=== PATIENT | female | born 1950 | race Caucasian/White ===

== ENCOUNTER → 2023-04-08 | Outpatient (CLI) | payer MEDICARE, OTHER | END | disposition home or self-care (01) | LOC: CT 07:46 | PROVIDERS: ATTEND Neurological Surgery | DX: I67.1 Cerebral aneurysm, nonruptured (principal); I67.82 Cerebral ischemia ==

== ENCOUNTER → 2023-04-23 | Outpatient (CLI) | payer MEDICARE, OTHER | END | disposition home or self-care (01) | LOC: CT 01:21 | PROVIDERS: ATTEND Physician Assistant | DX: I67.1 Cerebral aneurysm, nonruptured (principal); R22.0 Localized swelling, mass and lump, head; Z98.890 Other specified postprocedural states; Z86.79 Personal history of other diseases of the circulatory system ==

== ENCOUNTER 2023-08-04 22:07 | Emergency (ER) | payer MEDICARE, OTHER ==
[~2023-08-04] VITALS: Ht 152.4 cm; Wt 52.6 kg
[2023-08-04] MEDS ORDERED: SERTRALINE HYDR50 MG PO (22:34)
[2023-08-04] MEDS ORDERED: THEOPHYLLINE E PO (22:34)
[2023-08-04] MEDS ORDERED: IBUPROFEN IB200 M1 PO (22:35)
[2023-08-04] MEDS ORDERED: DONEPEZIL HYDRO10 MG PO (22:35)
[2023-08-04] MEDS ORDERED: OMEPRAZOLE10 MG PO (22:35)
[2023-08-04] MEDS ORDERED: PREDNISONE5 MG PO (22:36)
[2023-08-04] MEDS ORDERED: GRALISE300 M1 PO (22:36)
[2023-08-04] MEDS ORDERED: VENT7GM INH (22:36)
[2023-08-04] MEDS ORDERED: BIOTIN2500 MC1 PO (22:37)
[2023-08-04 22:59] LABS: BASO % 0.1 % (0.0-1.0); HEMATOCRIT 37.4 % (37.0-47.0); LYMPH # 0.6 10*3/uL (1.3-4.4); LYMPH % 4.2 % (27.0-41.0); MEAN CELL VOLUME 85.2 fl (81.0-99.0); MEAN CORPUSCULAR HGB 26.4 pg (27.0-31.0); MEAN PLATELET VOLUME 9.2 fl (9.6-12.3); MONO # 0.8 10*3/uL (0.1-1.0); NEUT # 12.4 10*3/uL (2.3-7.9); NEUT % 89.1 % (47.0-73.0); PLATELET COUNT AUTOMATED 284 10*3/uL (130-400); RED BLOOD COUNT 4.39 10*6/uL (4.10-5.10)
[2023-08-04 23:14] LABS: ACT PARTIAL THROMBO TIME 24.5 SECONDS (20.0-32.1)
[2023-08-04 23:21] LABS: ALKALINE PHOSPHATASE 124 U/L (46-116); BUN 16 mg/dl (9-23); CHLORIDE 107 mmol/L (98-107); LIPASE 33 U/L (12-53); SGPT/ALT 10 U/L (5-49); TOTAL PROTEIN 6.3 gm/dL (6.0-8.0)
[2023-08-05] MEDS ORDERED: VIBRAMYCIN100 MG PO (02:35)
[2023-08-05] MEDS ORDERED: PREDNISONE20 M1 PO (02:36)
== END 2023-08-05 03:54 | disposition home or self-care (01) ==
LOC: ED 22:07
PROVIDERS: Internal Medicine
DX: J44.9 Chronic obstructive pulmonary disease, unspecified (principal); A04.72 Enterocolitis due to Clostridium difficile, not specified as recurrent; J18.9 Pneumonia, unspecified organism; F17.210 Nicotine dependence, cigarettes, uncomplicated

== ENCOUNTER 2023-08-17 21:50 | Emergency (ER) | payer MEDICARE, OTHER ==
[~2023-08-17] VITALS: Ht 162.5 cm; Wt 54.0 kg
[~2023-08-17 21:50] MED LIST: BIOTIN2500 MC1 PO; DONEPEZIL HYDRO10 MG PO; GRALISE300 M1 PO; IBUPROFEN IB200 M1 PO; OMEPRAZOLE10 MG PO; PREDNISONE20 M1 PO; PREDNISONE5 MG PO; SERTRALINE HYDR50 MG PO; THEOPHYLLINE E PO; VENT7GM INH; VIBRAMYCIN100 MG PO
[2023-08-17 23:45] LABS: BASO % 0.4 % (0.0-1.0); EOS # 0.1 10*3/uL (0.0-0.4); EOS % 0.8 % (1.0-4.0); HEMATOCRIT 40.9 % (37.0-47.0); LYMPH # 1.6 10*3/uL (1.3-4.4); LYMPH % 16.1 % (27.0-41.0); MEAN CELL VOLUME 86.8 fl (81.0-99.0); MEAN CORPUSCULAR HGB 26.1 pg (27.0-31.0); MEAN CORPUSCULAR HGB CONC 30.1 g/dl (33.0-37.0); MEAN PLATELET VOLUME 8.9 fl (9.6-12.3); MONO # 0.9 10*3/uL (0.1-1.0); MONO % 8.6 % (3.0-9.0); NEUT # 7.5 10*3/uL (2.3-7.9); NEUT % 73.4 % (47.0-73.0); PLATELET COUNT AUTOMATED 365 10*3/uL (130-400); RED BLOOD COUNT 4.71 10*6/uL (4.10-5.10); RED CELL DISTRI WIDTH 16.4 % (0-14.5); WHITE BLOOD COUNT 10.2 10*3/uL (4.8-10.8)
[2023-08-18 00:13] LABS: ALKALINE PHOSPHATASE 139 U/L (46-116); BUN 18 mg/dl (9-23); CHLORIDE 107 mmol/L (98-107); POTASSIUM 3.6 mmol/L (3.4-5.1); SGPT/ALT 10 U/L (5-49); THEOPHYLLINE 17.2 ug/ml (10-20); TOTAL PROTEIN 6.5 gm/dL (6.0-8.0)
[2023-08-18] MEDS ORDERED: PREDNISONE20 M1 PO (06:31)
== END 2023-08-18 06:48 | disposition home or self-care (01) ==
LOC: ED 21:50
PROVIDERS: Internal Medicine
DX: S00.01XA Abrasion of scalp, initial encounter (principal); X58.XXXA Exposure to other specified factors, initial encounter; Y93.89 Activity, other specified; Y92.009 Unspecified place in unspecified non-institutional (private) residence as the place of occurrence of the external cause; Y99.8 Other external cause status

== ENCOUNTER → 2023-09-01 | Outpatient (CLI) | payer MEDICARE, OTHER | END | disposition home or self-care (01) | LOC: CT 01:04 | PROVIDERS: ATTEND Neurological Surgery | DX: I67.1 Cerebral aneurysm, nonruptured (principal); I62.00 Nontraumatic subdural hemorrhage, unspecified; Z98.890 Other specified postprocedural states ==

== ENCOUNTER → 2023-10-12 | Outpatient (CLI) | payer MEDICARE, OTHER | END | disposition home or self-care (01) | LOC: CT 02:06 | PROVIDERS: ATTEND Physician Assistant Medical | DX: S06.5XAA Traumatic subdural hemorrhage with loss of consciousness status unknown, initial encounter (principal); Z98.890 Other specified postprocedural states; X58.XXXA Exposure to other specified factors, initial encounter; Y93.89 Activity, other specified; Y92.89 Other specified places as the place of occurrence of the external cause; Y99.8 Other external cause status ==

== ENCOUNTER 2024-01-08 17:40 | Emergency (ER) | payer MEDICARE, OTHER ==
[~2024-01-08] VITALS: Ht 149.8 cm; Wt 52.2 kg
[2024-01-08] MEDS ORDERED: SODIUM CHLORIDE 0.9% 1,000 ML IV ONE (18:00)
[2024-01-08] MEDS ORDERED: AZITHROMYCIN 250 MG TAB PO ONE (18:00)
[2024-01-08] MEDS ORDERED: MAGNESIUM SULFATE 50 ML IV ONE (18:00)
[2024-01-08] MEDS ORDERED: Albuterol Sulfate 2.5 MG/3 ML VIAL NEB ONE (18:00)
[2024-01-08] MEDS ORDERED: methylPREDNISolone sod succ 125 MG VIAL IV ONE (18:00)
[2024-01-08 18:08] LABS: BASO % 0.2 % (0.0-1.0); EOS % 0.1 % (1.0-4.0); HEMATOCRIT 39.9 % (37.0-47.0); LYMPH # 0.3 10*3/uL (1.3-4.4); LYMPH % 1.9 % (27.0-41.0); MEAN CELL VOLUME 80.9 fl (81.0-99.0); MEAN CORPUSCULAR HGB 24.1 pg (27.0-31.0); MEAN CORPUSCULAR HGB CONC 29.8 g/dl (33.0-37.0); MEAN PLATELET VOLUME 9.2 fl (9.6-12.3); MONO # 0.7 10*3/uL (0.1-1.0); MONO % 5.1 % (3.0-9.0); NEUT # 12.5 10*3/uL (2.3-7.9); NEUT % 92.3 % (47.0-73.0); PLATELET COUNT AUTOMATED 338 10*3/uL (130-400); RED BLOOD COUNT 4.93 10*6/uL (4.10-5.10); RED CELL DISTRI WIDTH 18.4 % (0-14.5); WHITE BLOOD COUNT 13.6 10*3/uL (4.8-10.8)
[2024-01-08 18:32] LABS: ALKALINE PHOSPHATASE 139 U/L (46-116); BUN 17 mg/dl (9-23); CHLORIDE 105 mmol/L (98-107); SGPT/ALT 15 U/L (5-49); TOTAL PROTEIN 6.8 gm/dL (6.0-8.0)
[2024-01-08] MEDS ORDERED: PREDNISONE20 M1 PO (18:51)
[2024-01-08] MEDS ORDERED: AVPAK AZITHROM250 M1 PO (18:51)
[2024-01-08 18:55] LABS: BURR CELLS FEW; MICROCYTOSIS SLIGHT; PLATELET SUFFICIENCY NORMAL (NORMAL); TOTAL CELLS COUNTED 100 #CELLS
== END 2024-01-08 19:33 | disposition home or self-care (01) ==
LOC: ED 17:40
PROVIDERS: Emergency Medicine
DX: J44.1 Chronic obstructive pulmonary disease with (acute) exacerbation (principal); J45.909 Unspecified asthma, uncomplicated; F17.200 Nicotine dependence, unspecified, uncomplicated

== ENCOUNTER → 2024-05-28 | Outpatient (CLI) | payer MEDICARE, OTHER ==
[~2024-05-28] MED LIST changes: +AVPAK AZITHROM250 M1 PO
== END | disposition home or self-care (01) ==
LOC: CT 10:45
PROVIDERS: ATTEND Physician Assistant Medical
DX: G96.00 Cerebrospinal fluid leak, unspecified (principal); G96.08 Other cranial cerebrospinal fluid leak; I67.82 Cerebral ischemia; R42 Dizziness and giddiness

== ENCOUNTER 2024-06-21 00:03 | Emergency (ER) | payer MEDICARE, OTHER ==
[~2024-06-21] VITALS: Ht 152.4 cm; Wt 54.4 kg
[2024-06-21 00:42] LABS: BASO % 0.1 % (0.0-1.0); EOS % 0.1 % (1.0-4.0); HEMATOCRIT 28.8 % (37.0-47.0); LYMPH # 0.6 10*3/uL (1.3-4.4); LYMPH % 5.8 % (27.0-41.0); MEAN CELL VOLUME 80.9 fl (81.0-99.0); MEAN CORPUSCULAR HGB 23.3 pg (27.0-31.0); MEAN CORPUSCULAR HGB CONC 28.8 g/dl (33.0-37.0); MEAN PLATELET VOLUME 8.7 fl (9.6-12.3); MONO # 0.6 10*3/uL (0.1-1.0); MONO % 5.9 % (3.0-9.0); NEUT % 87.3 % (47.0-73.0); PLATELET COUNT AUTOMATED 406 10*3/uL (130-400); RED BLOOD COUNT 3.56 10*6/uL (4.10-5.10); RED CELL DISTRI WIDTH 18.2 % (0-14.5); WHITE BLOOD COUNT 10.3 10*3/uL (4.8-10.8)
[2024-06-21 01:05] LABS: POTASSIUM 3.5 mmol/L (3.4-5.1)
== END 2024-06-21 02:49 | disposition home or self-care (01) ==
LOC: ED 00:03
PROVIDERS: Internal Medicine
DX: S01.00XA Unspecified open wound of scalp, initial encounter (principal); N18.32 Chronic kidney disease, stage 3b; D63.1 Anemia in chronic kidney disease; J44.9 Chronic obstructive pulmonary disease, unspecified; X58.XXXA Exposure to other specified factors, initial encounter; Y93.89 Activity, other specified; Y92.009 Unspecified place in unspecified non-institutional (private) residence as the place of occurrence of the external cause; Y99.8 Other external cause status

== ENCOUNTER → 2024-06-23 | Outpatient (CLI) | payer MEDICARE, OTHER ==
[~2024-06-23] MED LIST changes: +GABAPENTIN ER300 MG PO; +SERTRALINE HYD100 MG PO
== END | disposition home or self-care (01) ==
LOC: WOUNDCARE 02:12 → RESCLI 15:36 → WOUNDCARE 18:30
PROVIDERS: ATTEND Nurse Practitioner Family
DX: S01.00XA Unspecified open wound of scalp, initial encounter (principal); R21 Rash and other nonspecific skin eruption; D50.0 Iron deficiency anemia secondary to blood loss (chronic); N18.30 Chronic kidney disease, stage 3 unspecified; L28.1 Prurigo nodularis; K21.9 Gastro-esophageal reflux disease without esophagitis; J44.9 Chronic obstructive pulmonary disease, unspecified; F17.210 Nicotine dependence, cigarettes, uncomplicated; Z79.899 Other long term (current) drug therapy; X58.XXXA Exposure to other specified factors, initial encounter; Y93.89 Activity, other specified; Y92.89 Other specified places as the place of occurrence of the external cause; Y99.8 Other external cause status

== ENCOUNTER 2024-06-28 19:33 | Emergency (ER) | payer MEDICARE, OTHER ==
[~2024-06-28] VITALS: Ht 152.4 cm; Wt 53.1 kg
[~2024-06-28 19:33] MED LIST changes: -GABAPENTIN ER300 MG PO; -SERTRALINE HYD100 MG PO
[2024-06-28] MEDS ORDERED: SERTRALINE HYD100 MG PO (19:51)
[2024-06-28] MEDS ORDERED: GABAPENTIN ER300 MG PO (19:52)
[2024-06-28] MEDS ORDERED: Albuterol Sulf/Ipratropium 3 ML VIAL NEB ONE (20:00)
[2024-06-28 20:15] LABS: BASO % 0.3 % (0.0-1.0); EOS # 0.1 10*3/uL (0.0-0.4); EOS % 0.6 % (1.0-4.0); HEMATOCRIT 27.3 % (37.0-47.0); MEAN CELL VOLUME 80.5 fl (81.0-99.0); MEAN CORPUSCULAR HGB CONC 28.6 g/dl (33.0-37.0); MEAN PLATELET VOLUME 9.1 fl (9.6-12.3); MONO % 8.6 % (3.0-9.0); NEUT % 75.8 % (47.0-73.0); PLATELET COUNT AUTOMATED 412 10*3/uL (130-400); RED BLOOD COUNT 3.39 10*6/uL (4.10-5.10); RED CELL DISTRI WIDTH 18.3 % (0-14.5); WHITE BLOOD COUNT 11.8 10*3/uL (4.8-10.8)
[2024-06-28 20:32] LABS: POTASSIUM 3.8 mmol/L (3.4-5.1); TOTAL PROTEIN 5.9 gm/dL (6.0-8.0)
[2024-06-28] MEDS ORDERED: methylPREDNISolone sod succ 125 MG VIAL IV ONE (20:40)
[2024-06-28] MEDS ORDERED: SODIUM CHLORIDE 0.9% 100 ML BAG IV ONE (20:55)
[2024-06-28] MEDS ORDERED: IOHEXOL 350 MG/ML 100 ML VIAL IV ONE (20:55)
[2024-06-28] MEDS ORDERED: VIBRAMYCIN100 MG PO (22:24)
[2024-06-28] MEDS ORDERED: Doxycycline Hyclate 100 MG CAP PO ONE (22:25)
[2024-06-28] MEDS ORDERED: PREDNISONE20 M1 PO (22:27)
== END 2024-06-28 22:43 | disposition left against medical advice (07) ==
LOC: ED 19:33
PROVIDERS: Nurse Practitioner Family
DX: J44.1 Chronic obstructive pulmonary disease with (acute) exacerbation (principal); Z20.822 Contact with and (suspected) exposure to COVID-19; K21.9 Gastro-esophageal reflux disease without esophagitis; F32.A Depression, unspecified; Z87.891 Personal history of nicotine dependence; Z53.29 Procedure and treatment not carried out because of patient's decision for other reasons

== ENCOUNTER → 2024-06-30 | Outpatient (CLI) | payer MEDICARE, OTHER ==
[~2024-06-30] MED LIST changes: +GABAPENTIN ER300 MG PO; +SERTRALINE HYD100 MG PO
== END | disposition home or self-care (01) ==
LOC: WOUNDCARE 01:29
PROVIDERS: ATTEND Nurse Practitioner Family
DX: S01.00XD Unspecified open wound of scalp, subsequent encounter (principal); R21 Rash and other nonspecific skin eruption; D50.0 Iron deficiency anemia secondary to blood loss (chronic); N18.30 Chronic kidney disease, stage 3 unspecified; L28.1 Prurigo nodularis; K21.9 Gastro-esophageal reflux disease without esophagitis; J44.9 Chronic obstructive pulmonary disease, unspecified; F17.210 Nicotine dependence, cigarettes, uncomplicated; Z79.899 Other long term (current) drug therapy; X58.XXXD Exposure to other specified factors, subsequent encounter

== ENCOUNTER → 2024-07-07 | Outpatient (CLI) | payer MEDICARE, OTHER | END | disposition home or self-care (01) | LOC: WOUNDCARE 02:10 | PROVIDERS: ATTEND Nurse Practitioner Family | DX: S01.00XD Unspecified open wound of scalp, subsequent encounter (principal); S01.01XD Laceration without foreign body of scalp, subsequent encounter; R21 Rash and other nonspecific skin eruption; D50.0 Iron deficiency anemia secondary to blood loss (chronic); N18.30 Chronic kidney disease, stage 3 unspecified; L28.1 Prurigo nodularis; K21.9 Gastro-esophageal reflux disease without esophagitis; J44.9 Chronic obstructive pulmonary disease, unspecified; F17.210 Nicotine dependence, cigarettes, uncomplicated; Z79.899 Other long term (current) drug therapy; X58.XXXD Exposure to other specified factors, subsequent encounter ==

== ENCOUNTER → 2024-07-14 | Outpatient (CLI) | payer MEDICARE, OTHER | END | disposition home or self-care (01) | LOC: WOUNDCARE 01:39 | PROVIDERS: ATTEND Nurse Practitioner Family | DX: R21 Rash and other nonspecific skin eruption (principal); S01.00XD Unspecified open wound of scalp, subsequent encounter; D50.0 Iron deficiency anemia secondary to blood loss (chronic); N18.30 Chronic kidney disease, stage 3 unspecified; S01.01XD Laceration without foreign body of scalp, subsequent encounter; L28.1 Prurigo nodularis; K21.9 Gastro-esophageal reflux disease without esophagitis; J44.9 Chronic obstructive pulmonary disease, unspecified; F17.200 Nicotine dependence, unspecified, uncomplicated; X58.XXXD Exposure to other specified factors, subsequent encounter ==

== ENCOUNTER → 2024-07-28 | Outpatient (CLI) | payer MEDICARE, OTHER | END | disposition home or self-care (01) | LOC: WOUNDCARE 02:08 | PROVIDERS: ATTEND Nurse Practitioner Family | DX: S00.01XD Abrasion of scalp, subsequent encounter (principal); R21 Rash and other nonspecific skin eruption; L98.492 Non-pressure chronic ulcer of skin of other sites with fat layer exposed; D50.0 Iron deficiency anemia secondary to blood loss (chronic); N18.30 Chronic kidney disease, stage 3 unspecified; L28.1 Prurigo nodularis; K21.9 Gastro-esophageal reflux disease without esophagitis; J44.9 Chronic obstructive pulmonary disease, unspecified; F17.210 Nicotine dependence, cigarettes, uncomplicated; Z79.899 Other long term (current) drug therapy; X58.XXXD Exposure to other specified factors, subsequent encounter ==

== ENCOUNTER → 2024-08-04 | Outpatient (CLI) | payer MEDICARE, OTHER | END | disposition home or self-care (01) | LOC: WOUNDCARE 00:41 | PROVIDERS: ATTEND Nurse Practitioner Family | DX: S00.01XD Abrasion of scalp, subsequent encounter (principal); R21 Rash and other nonspecific skin eruption; L98.492 Non-pressure chronic ulcer of skin of other sites with fat layer exposed; D50.0 Iron deficiency anemia secondary to blood loss (chronic); N18.30 Chronic kidney disease, stage 3 unspecified; L28.1 Prurigo nodularis; K21.9 Gastro-esophageal reflux disease without esophagitis; J44.9 Chronic obstructive pulmonary disease, unspecified; F17.210 Nicotine dependence, cigarettes, uncomplicated; Z79.899 Other long term (current) drug therapy; X58.XXXD Exposure to other specified factors, subsequent encounter ==

== ENCOUNTER → 2024-08-15 | Outpatient (CLI) | payer MEDICARE, OTHER | END | disposition home or self-care (01) | LOC: WOUNDCARE 00:46 | PROVIDERS: ATTEND Nurse Practitioner Family | DX: S00.01XD Abrasion of scalp, subsequent encounter (principal); R21 Rash and other nonspecific skin eruption; L98.492 Non-pressure chronic ulcer of skin of other sites with fat layer exposed; D50.0 Iron deficiency anemia secondary to blood loss (chronic); N18.30 Chronic kidney disease, stage 3 unspecified; L28.1 Prurigo nodularis; K21.9 Gastro-esophageal reflux disease without esophagitis; J44.9 Chronic obstructive pulmonary disease, unspecified; F17.210 Nicotine dependence, cigarettes, uncomplicated; Z79.899 Other long term (current) drug therapy; X58.XXXD Exposure to other specified factors, subsequent encounter ==

== ENCOUNTER → 2024-08-22 | Outpatient (CLI) | payer MEDICARE, OTHER | END | disposition home or self-care (01) | LOC: WOUNDCARE 02:53 | PROVIDERS: ATTEND Nurse Practitioner Primary Care | DX: R21 Rash and other nonspecific skin eruption (principal); L98.492 Non-pressure chronic ulcer of skin of other sites with fat layer exposed; L28.1 Prurigo nodularis; S00.01XD Abrasion of scalp, subsequent encounter; D50.0 Iron deficiency anemia secondary to blood loss (chronic); J44.9 Chronic obstructive pulmonary disease, unspecified; K21.9 Gastro-esophageal reflux disease without esophagitis; N18.30 Chronic kidney disease, stage 3 unspecified; F17.200 Nicotine dependence, unspecified, uncomplicated; Z98.890 Other specified postprocedural states; Z79.899 Other long term (current) drug therapy; X58.XXXD Exposure to other specified factors, subsequent encounter ==

== ENCOUNTER → 2024-09-02 | Outpatient (CLI) | payer MEDICARE, OTHER | END | disposition home or self-care (01) | LOC: WOUNDCARE 00:16 | PROVIDERS: ATTEND Nurse Practitioner Family | DX: R21 Rash and other nonspecific skin eruption (principal); L98.492 Non-pressure chronic ulcer of skin of other sites with fat layer exposed; L28.1 Prurigo nodularis; S00.01XD Abrasion of scalp, subsequent encounter; D50.0 Iron deficiency anemia secondary to blood loss (chronic); J44.9 Chronic obstructive pulmonary disease, unspecified; K21.9 Gastro-esophageal reflux disease without esophagitis; N18.30 Chronic kidney disease, stage 3 unspecified; F17.210 Nicotine dependence, cigarettes, uncomplicated; Z98.890 Other specified postprocedural states; Z79.899 Other long term (current) drug therapy; X58.XXXD Exposure to other specified factors, subsequent encounter ==

== ENCOUNTER → 2024-09-29 | Outpatient (CLI) | payer MEDICARE, OTHER | END | disposition home or self-care (01) | LOC: WOUNDCARE 00:43 | PROVIDERS: ATTEND Nurse Practitioner Family | DX: R21 Rash and other nonspecific skin eruption (principal); L28.1 Prurigo nodularis; L98.492 Non-pressure chronic ulcer of skin of other sites with fat layer exposed; S00.01XD Abrasion of scalp, subsequent encounter; K21.9 Gastro-esophageal reflux disease without esophagitis; J45.909 Unspecified asthma, uncomplicated; N18.30 Chronic kidney disease, stage 3 unspecified; D50.0 Iron deficiency anemia secondary to blood loss (chronic); F17.210 Nicotine dependence, cigarettes, uncomplicated; Z98.890 Other specified postprocedural states; Z79.899 Other long term (current) drug therapy; X58.XXXD Exposure to other specified factors, subsequent encounter ==

== ENCOUNTER → 2024-10-06 | Outpatient (CLI) | payer MEDICARE, OTHER | END | disposition home or self-care (01) | LOC: WOUNDCARE 02:21 | PROVIDERS: ATTEND Nurse Practitioner Family | DX: R21 Rash and other nonspecific skin eruption (principal); L28.1 Prurigo nodularis; L98.492 Non-pressure chronic ulcer of skin of other sites with fat layer exposed; S00.01XD Abrasion of scalp, subsequent encounter; N18.30 Chronic kidney disease, stage 3 unspecified; D50.0 Iron deficiency anemia secondary to blood loss (chronic); J45.909 Unspecified asthma, uncomplicated; K21.9 Gastro-esophageal reflux disease without esophagitis; F17.210 Nicotine dependence, cigarettes, uncomplicated; Z98.890 Other specified postprocedural states; Z79.899 Other long term (current) drug therapy; X58.XXXD Exposure to other specified factors, subsequent encounter ==

== ENCOUNTER → 2024-10-13 | Outpatient (CLI) | payer MEDICARE, OTHER | END | disposition home or self-care (01) | LOC: WOUNDCARE 01:55 | PROVIDERS: ATTEND Nurse Practitioner Family | DX: R21 Rash and other nonspecific skin eruption (principal); L28.1 Prurigo nodularis; S00.01XD Abrasion of scalp, subsequent encounter; L98.492 Non-pressure chronic ulcer of skin of other sites with fat layer exposed; N18.30 Chronic kidney disease, stage 3 unspecified; D50.0 Iron deficiency anemia secondary to blood loss (chronic); J45.909 Unspecified asthma, uncomplicated; K21.9 Gastro-esophageal reflux disease without esophagitis; F17.210 Nicotine dependence, cigarettes, uncomplicated; Z98.890 Other specified postprocedural states; Z79.899 Other long term (current) drug therapy; X58.XXXD Exposure to other specified factors, subsequent encounter ==